=== PATIENT | female | born 1985 | race Caucasian/White ===

== ENCOUNTER 2017-10-07 12:16 | Emergency (ER) | payer MEDICAID ==
[~2017-10-07] VITALS: Ht 172.7 cm; Wt 90.7 kg
[2017-10-07 14:51] VITALS: BP 119/65
[2017-10-07] MEDS ORDERED: KETOROLAC TROMETH 60MG/2ML VIAL IM ONE (15:00)
== END 2017-10-07 15:48 | disposition home or self-care (01) ==
LOC: ER 12:16
DX: M51.36 Other intervertebral disc degeneration, lumbar region (principal)
CPT/HCPCS: 72100; 96372; 99284; J1885

== ENCOUNTER 2018-02-15 12:25 | Emergency (ER) | payer MEDICAID ==
[~2018-02-15] VITALS: Ht 172.7 cm; Wt 81.2 kg
[2018-02-15 14:14] VITALS: BP 125/72
== END 2018-02-15 15:13 | disposition home or self-care (01) ==
LOC: ER 12:25
DX: S82.52XA Displaced fracture of medial malleolus of left tibia, initial encounter for closed fracture (principal); F17.210 Nicotine dependence, cigarettes, uncomplicated; X58.XXXA Exposure to other specified factors, initial encounter; Y93.89 Activity, other specified; Y99.8 Other external cause status; Y92.89 Other specified places as the place of occurrence of the external cause
CPT/HCPCS: 29515; 73610

== ENCOUNTER 2020-07-10 18:17 | Emergency (ER) | payer MEDICAID ==
[~2020-07-10] VITALS: Ht 172.7 cm; Wt 77.1 kg
[2020-07-10 18:54] VITALS: BP 126/79
== END 2020-07-10 19:20 | disposition home or self-care (01) ==
LOC: ER 18:17
DX: S46.911A Strain of unspecified muscle, fascia and tendon at shoulder and upper arm level, right arm, initial encounter (principal); M13.811 Other specified arthritis, right shoulder; M75.51 Bursitis of right shoulder; X58.XXXA Exposure to other specified factors, initial encounter; Y93.89 Activity, other specified; Y92.89 Other specified places as the place of occurrence of the external cause; Y99.8 Other external cause status
CPT/HCPCS: 73030

== ENCOUNTER 2020-08-02 06:35 | Emergency (ER) | payer MEDICAID ==
[~2020-08-02] VITALS: Ht 172.7 cm; Wt 75.7 kg
[2020-08-02 06:45] VITALS: BP 114/79
[2020-08-02] MEDS ORDERED: cefTRIAXone SOD 1,000 MG VL IM ONE (07:00)
[2020-08-02 07:39] LABS: Urine Bacteria MANY /hpf (None Seen); Urine Blood 2+ /uL (Negative); Urine Budding Yeast MANY /hpf (None Seen); Urine Specific Gravity 1.008 (1.001-1.035); Urine WBC 119 /hpf (0 - 5)
== END 2020-08-02 07:44 | disposition home or self-care (01) ==
LOC: ER 06:35
DX: N39.0 Urinary tract infection, site not specified (principal); M54.5 Low back pain; F17.210 Nicotine dependence, cigarettes, uncomplicated
CPT/HCPCS: 81001; 96372; 99283; J0696

== ENCOUNTER 2020-10-03 16:59 | Emergency (ER) | payer MEDICAID, OTHER ==
[~2020-10-03] VITALS: Ht 172.7 cm; Wt 79.8 kg
[2020-10-03 17:41] VITALS: BP 99/68
== END 2020-10-03 18:29 | disposition home or self-care (01) ==
LOC: ER 16:59
DX: L84 Corns and callosities (principal); F17.210 Nicotine dependence, cigarettes, uncomplicated

== ENCOUNTER 2020-11-14 22:22 | Emergency (ER) | payer OTHER ==
[~2020-11-14] VITALS: Ht 172.7 cm; Wt 69.9 kg
[2020-11-14 22:23] VITALS: BP 119/79
== END 2020-11-15 03:56 | disposition left against medical advice (07) ==
LOC: ER 22:22
DX: S90.561A Insect bite (nonvenomous), right ankle, initial encounter (principal); Z53.21 Procedure and treatment not carried out due to patient leaving prior to being seen by health care provider; W57.XXXA Bitten or stung by nonvenomous insect and other nonvenomous arthropods, initial encounter; Y93.89 Activity, other specified; Y92.89 Other specified places as the place of occurrence of the external cause; Y99.8 Other external cause status

== ENCOUNTER 2021-02-09 20:44 | Emergency (ER) | payer OTHER ==
[~2021-02-09] VITALS: Ht 172.7 cm; Wt 75.7 kg
[2021-02-09 20:44] VITALS: BP 122/78
== END 2021-02-10 04:19 | disposition left against medical advice (07) ==
LOC: ER 20:47
DX: R21 Rash and other nonspecific skin eruption (principal); Z53.21 Procedure and treatment not carried out due to patient leaving prior to being seen by health care provider